=== PATIENT | female | born 1975 | race Two or more races ===

== ENCOUNTER 2021-01-11 22:49 | Emergency (ER) | payer BC ==
[~2021-01-11] VITALS: Ht 152.4 cm; Wt 85.7 kg
[2021-01-11 23:15] VITALS: BP_SYST 136
[2021-01-12] MEDS ORDERED: PIPERACILLIN/TAZO 3.375 GM in NS 50 ML IV ONE (01:00)
[2021-01-12] MEDS ORDERED: KETOROLAC TROMETHAMINE 15 MG VIAL IVP ONE (01:00)
[2021-01-12] MEDS ORDERED: NACL 0.9% 1,000 ML IV ONE (01:00)
[2021-01-12] MEDS ORDERED: PIPERACILLIN/TAZOBACTAM 3.375 GM/VIAL (ZOSYN) IV ONE (01:45)
[2021-01-12] MEDS ORDERED: NAPR-688 PO (03:44)
[2021-01-12] MEDS ORDERED: ACET1TAB23 PO (03:44)
[2021-01-12] MEDS ORDERED: CEPH250C PO (03:44)
[2021-01-12 04:05] VITALS: BP_SYST 148
== END 2021-01-12 04:05 | disposition home or self-care (01) ==
LOC: SED 22:49
DX: N61.1 Abscess of the breast and nipple (principal)
CPT/HCPCS: 76642; 87070; 87075; 96365; 96375; 99284; J1885; J2543; J7030

== ENCOUNTER 2021-01-28 09:26 | Day surgery (SDC) | payer BC, SELFPAY ==
[~2021-01-28] VITALS: Ht 152.4 cm; Wt 83.9 kg
[~2021-01-28 09:26] MED LIST: ACET1TAB23 PO; CEFAZOLIN SOD 1 GM in D5W 50 ML IV ONE; CEPH250C PO; NAPR-688 PO
[2021-01-28 09:59] LABS: HCG,QUAL RESULT NEGATIVE (NEGATIVE)
[2021-01-28] MEDS ORDERED: fentaNYL CITRATE 250 MCG/5 ML AMP IV ONE (13:11)
[2021-01-28] MEDS ORDERED: LR 1,000 ML IV.SOLN IV ONE (13:11)
[2021-01-28] MEDS ORDERED: NS 1000 ML IV.SOLN IV ONE (13:11)
[2021-01-28] MEDS ORDERED: SEVOFLURANE 15 MIN GAS INH ONE (13:11)
[2021-01-28] MEDS ORDERED: DEXAMETHASONE SOD PHOSPHATE 4 MG/ML VIAL IVP ONE (13:11)
[2021-01-28] MEDS ORDERED: PROPOFOL 200MG/ 20ML VIAL (DIPRIVAN) IV ONE (13:11)
[2021-01-28] MEDS ORDERED: BUPIVACAINE /PF 0.25% 30 ML VIAL INJ ONE (13:11)
[2021-01-28] MEDS ORDERED: LIDOCAINE 2%, 20 ML MDV INJ ONE (13:11)
[2021-01-28] MEDS ORDERED: ONDANSETRON HCL 4 MG/2 ML VIAL IVP ONE (13:11)
[2021-01-28] MEDS ORDERED: MIDAZOLAM HCL 5 MG/5 ML VIAL IVP ONE (13:11)
[2021-01-28] MEDS ORDERED: ONDANSETRON HCL 4 MG/2 ML VIAL IVP PRN (14:00)
[2021-01-28] MEDS ORDERED: MIDAZOLAM HCL 2 MG/2 ML VIAL (VERSED) IVP PRN (14:00)
[2021-01-28] MEDS ORDERED: LR 1,000 ML IV SCH (14:00)
[2021-01-28] MEDS ORDERED: MEPERIDINE HCL/PF 25 MG/ML DISP.SYRIN IVP PRN (14:00)
[2021-01-28] MEDS ORDERED: HYDROmorphone 1 INJ. 1 MG/ML CARTRIDGE IVP PRN ×2 (14:00)
[2021-01-28] MEDS ORDERED: METOCLOPRAMIDE HCL 10 MG/2 ML VIAL IVP PRN (14:00)
[2021-01-28] MEDS ORDERED: HYDROmorphone 1 INJ. 1 MG/ML CARTRIDGE ONE (14:59)
[2021-01-28 15:25] VITALS: BP_SYST 126
[2021-01-28] MEDS ORDERED: HYDROcodone/ACETAMIN 5-325 MG TAB (NORCO/ VICODIN) PO PRN (17:00)
[2021-01-28] MEDS ORDERED: D5/0.45 NS 1,000 ML IV SCH (17:00)
== END 2021-01-28 17:35 | disposition home or self-care (01) ==
LOC: SDS 09:26 → SMU 09:28 → EDSTATUS 09:50 → SDS 17:35
PROVIDERS: ATTEND Colon & Rectal Surgery
DX: N61.0 Mastitis without abscess (principal); N61.1 Abscess of the breast and nipple; J45.909 Unspecified asthma, uncomplicated; E66.9 Obesity, unspecified; Z79.899 Other long term (current) drug therapy
CPT/HCPCS: 19020; 36415; 84703; 87070 ×2; 87075; 87426; J0690; J1100; J1170; J2001; J2250; J2405; J2704; J3010; J3490; J7030; J7060; J7120